=== PATIENT | male | born 1935 | race Caucasian/White ===

== ENCOUNTER 2023-03-10 05:41 | Day surgery (SDC) | payer MEDICARE, BC ==
[2023-03-09 10:13] LABS: BASOPHILS % (AUTO) 0.7 % (0-1); EOSINOPHILS # (AUTO) 0.3 X10'3 (0-0.9); EOSINOPHILS % (AUTO) 4.8 % (0-6); HEMATOCRIT 42.1 % (42.0-52.0); HEMOGLOBIN 13.8 g/dl (14.0-17.9); LYMPHOCYTES % (AUTO) 18.1 % (21-51); MEAN CORPUSCULAR HEMOGLOBIN 29.9 PG (27.0-31.0); MEAN CORPUSCULAR HGB CONC 32.8 g/dL (33.0-36.5); MEAN CORPUSCULAR VOLUME 91.1 FL (78-98); MEAN PLATELET VOLUME 8.2 FL (7.4-10.4); MONOCYTES # (AUTO) 0.5 X10'3 (0-0.9); MONOCYTES % (AUTO) 8.9 % (2-12); NEUTROPHILS # (AUTO) 3.9 X10'3 (1.8-7.7); NEUTROPHILS % (AUTO) 67.5 % (42-75); PLATELET COUNT 178 X10'3 (140-440); RED BLOOD COUNT 4.62 X10'6 (4.70-6.10); RED CELL DISTRIBUTION WIDTH 15.8 % (11.5-14.5); WHITE BLOOD COUNT 5.8 X10'3 (4.5-11.0)
[2023-03-09 10:24] LABS: ANION GAP 9 (8-16); BLOOD UREA NITROGEN 27 MG/DL (7-18); BUN/CREATININE RATIO 18.1 (10.0-20.0); CALCIUM 9.7 MG/DL (8.5-10.1); CHLORIDE 101 MMOL/L (99-107); CREATININE 1.49 MG/DL (0.60-1.10); GLUCOSE 206 MG/DL (70-104); SODIUM 140 MMOL/L (135-145); TOTAL CARBON DIOXIDE 29.9 MMOL/L (24-32); eGFR 45 ML/MIN
[2023-03-09 10:25] LABS: APTT 25 SECONDS (22-32)
[~2023-03-10] VITALS: Ht 172.7 cm; Wt 68.7 kg
[2023-03-10] VITALS (17 sets, daily range): BP systolic 85–129; BP diastolic 44–94
[2023-03-10] MEDS ORDERED: LORazepam 0.5 MG tablet PO PRN (06:25)
[2023-03-10] MEDS ORDERED: normal saline 1,000 ML IV SCH (06:25)
[2023-03-10] MEDS ORDERED: diphenhydrAMINE 25mg capsule PO PRN (06:25)
[2023-03-10] MEDS ORDERED: SODIUM BICARB 150mEq/D5W 1L 999 ML IV SCH ×4 (06:30→10:00)
[2023-03-10] MEDS ORDERED: FURO20TA4 PO (07:07)
[2023-03-10] MEDS ORDERED: FURO40TA4 PO (07:07)
[2023-03-10] MEDS ORDERED: FLO0.4C PO (07:07)
[2023-03-10] MEDS ORDERED: SACU1TAB PO (07:07)
[2023-03-10] MEDS ORDERED: ATOR40TA72 PO (07:07)
[2023-03-10] MEDS ORDERED: SPIR25TA5 PO (07:07)
[2023-03-10] MEDS ORDERED: METO50TA16 PO (07:07)
[2023-03-10] MEDS ORDERED: DOXY-224 PO (07:07)
[2023-03-10] MEDS ORDERED: OXYB10TA30 PO (07:07)
[2023-03-10] MEDS ORDERED: EMPA10TA PO (07:07)
[2023-03-10] MEDS ORDERED: LISI5TAB22 PO (07:07)
[2023-03-10] MEDS ORDERED: ASPI-1265 PO (07:07)
[2023-03-10] MEDS ORDERED: LIDOcaine 1% (10mg/ml) 2ml vial ONE (07:33)
[2023-03-10] MEDS ORDERED: nitroGLYCERIN-Tridil 50MG/D5W 250 ML IV ONE (07:33)
[2023-03-10] MEDS ORDERED: midazolam 1 mg/ML 2ml injection ONE (07:34)
[2023-03-10] MEDS ORDERED: fentaNYL/PF 50MCG/1 ML 2ML syringe ONE (07:34)
[2023-03-10] MEDS ORDERED: iohexol 350 MG/ML 50ML vial IV ONE (07:34)
[2023-03-10] MEDS ORDERED: iohexol 350MG/ML 100ml bottle IV ONE (07:34)
[2023-03-10] MEDS ORDERED: verapamil 2.5 mg/ml inj IV ONE (07:34)
[2023-03-10] MEDS ORDERED: heparin 1,000unit/ml 10ml vial 10 ML ONE (07:34)
[2023-03-10] MEDS ORDERED: DOBUTamine-DoBUTrex 500mg/D5W 250 ML IV ONE (08:36)
[2023-03-10] MEDS ORDERED: DOBUTamine 2000 MCG/250ML BAG IV SCH (10:10)
[2023-03-10] MEDS ORDERED: acetylcysteine 200 MG/ml 4ml vial PO SCH (10:25)
--- NOTE | 2023-03-10 13:46 | NUR ---
Bedside report given to POP Bonilla. All questions answered.
[2023-03-10] MEDS ORDERED: ACETYLCYSTEINE 200 MG/1 ML 4 ML ORAL SOLUTION PO SCH (20:00)
[2023-03-14 07:09] LABS: ISTAT Hct MIX 40 %PCV (42-52); ISTAT O2 SATURATION MIX VENOUS 60 % (60-80); ISTAT SOURCE BLNK
== END 2023-03-10 17:05 | disposition home or self-care (01) ==
LOC: SSTAY O 05:41
PROVIDERS: ATTEND Internal Medicine Cardiovascular Disease
DX: I25.10 Atherosclerotic heart disease of native coronary artery without angina pectoris (principal); I11.0 Hypertensive heart disease with heart failure; I50.22 Chronic systolic (congestive) heart failure; E11.9 Type 2 diabetes mellitus without complications; J44.9 Chronic obstructive pulmonary disease, unspecified; I42.0 Dilated cardiomyopathy; I27.29 Other secondary pulmonary hypertension; I44.7 Left bundle-branch block, unspecified; Z98.890 Other specified postprocedural states; Z87.891 Personal history of nicotine dependence; Z79.899 Other long term (current) drug therapy; Z79.84 Long term (current) use of oral hypoglycemic drugs; Z82.49 Family history of ischemic heart disease and other diseases of the circulatory system
CPT/HCPCS: 36415; 80048; 82948; 85025; 85610; 85730; 93005; 93460; 99152; 99153; A6258; C1894; J1250; J1644; J2250; J3010; J3490; J7030; Q0163; Q9967; 82803; 85014; A4620; A6402; C1725; C1751